=== PATIENT | male | born 1960 | race Caucasian/White ===

== ENCOUNTER → 2020-10-06 14:42 | Outpatient (BNVA) | payer MEDICAID, SELFPAY | PROVIDERS: Visit Provider Urology | DX: N28.1 Cyst of kidney, acquired (principal); N20.0 Calculus of kidney | CPT/HCPCS: 99212 ==

== ENCOUNTER → 2020-12-08 13:01 | Outpatient (BNVA) | payer MEDICAID, SELFPAY | PROVIDERS: PCP Internal Medicine; Visit Provider Urology ==

== ENCOUNTER 2021-12-02 12:53 | Outpatient (REF) | payer MEDICAID, SELFPAY ==
--- NOTE | ~2021-12-02 | US_ITS ---
EXAMINATION: US RETROPERITONEAL LIMITED (RENAL ONLY) CLINICAL INFORMATION: Calculus of kidney. COMPARISON: Ultrasound renal 08/29/2019 and 07/26/2018. TECHNIQUE: Real-time imaging of the kidneys. Bladder not imaged. FINDINGS: RIGHT KIDNEY: 11.5 x 5.0 x 6.5 cm (SAG x AP x TRV). The kidney is normal in size, contour, and echogenicity. Renal cortical thickness is normal. No renal calculi or hydronephrosis. There is an incidental specular echo interpolar region but without shadowing or twinkling artifact on color Doppler flow to suggest calculus. Simple cyst upper pole measures 4.2 x 3.5 x 3.8 cm. Prior measurements are 3.8 x 3.0 x 3.1 cm on ultrasound 2019. A smaller cyst noted previously is not demonstrated. LEFT KIDNEY: 10.9 x 6.3 x 5.3 cm (SAG x AP x TRV). The kidney is normal in size, contour, and echogenicity. Renal cortical thickness is normal. No renal calculi or hydronephrosis. There is an incidental specular echo upper pole but without shadowing or twinkling artifact on color Doppler flow to suggest calculus. Small interpolar cyst 1.0 cm is decreased from prior exam measurement 1.4 cm. US/US renal BI IMPRESSION: -No hydronephrosis or caliectasis. No definite calculi by strict ultrasound criteria. -Simple cyst upper pole right kidney 4.2 cm, prior measurement 3.8 cm.
== END 2021-12-02 12:54 | disposition home or self-care (01) ==
LOC: HO.US 12:53
PROVIDERS: Visit Provider Urology
DX: N20.0 Calculus of kidney (principal)
CPT/HCPCS: 76775

== ENCOUNTER → 2021-12-09 13:35 | Outpatient (BNVA) | payer MEDICAID, SELFPAY | PROVIDERS: PCP Psychiatry & Neurology Neurology; Visit Provider Urology | DX: N20.0 Calculus of kidney (principal); N28.1 Cyst of kidney, acquired | CPT/HCPCS: 99212 ==

== ENCOUNTER 2022-11-30 12:45 | Outpatient (REF) | payer OTHER, SELFPAY ==
--- NOTE | ~2022-11-30 | US_ITS ---
EXAMINATION: US RETROPERITONEAL LIMITED (RENAL ONLY) CLINICAL INFORMATION: Calculus of kidney. COMPARISON: Renal ultrasound 12/02/2021, renal ultrasound 08/29/2019. TECHNIQUE: Real-time imaging of the kidneys. FINDINGS: RIGHT KIDNEY: 12.5 x 6.8 x 6.1 cm (SAG x AP x TRV). The kidney is normal in size, contour, and echogenicity. Renal cortical thickness is normal. No renal calculi or hydronephrosis. A benign upper pole 3.6 cm Bosniak class I renal cyst is noted which requires no additional imaging or follow up. No solid renal masses are seen. LEFT KIDNEY: 11.0 x 6.1 x 5.7 cm (SAG x AP x TRV). The kidney is normal in size, contour, and echogenicity. Renal cortical thickness is normal. No hydronephrosis. Multiple benign Bosniak class I and Bosniak class II renal cysts are noted, the largest being a Bosniak class II cyst at the lower pole measuring 1.5 cm with an area of mural calcification posteriorly. These require no additional imaging or follow-up. No solid renal masses are seen. US/US renal BI IMPRESSION: 1. Bilateral benign Bosniak class I and Bosniak class II renal cysts which need no additional imaging or follow up. 2. No nephrolithiasis.
== END 2022-11-30 12:46 | disposition home or self-care (01) ==
LOC: HO.US 12:45
PROVIDERS: PCP Psychiatry & Neurology Neurology; Visit Provider Urology
DX: N20.0 Calculus of kidney (principal)
CPT/HCPCS: 76775

== ENCOUNTER → 2023-01-11 11:44 | Outpatient (BNVA) | payer OTHER, SELFPAY | PROVIDERS: PCP Psychiatry & Neurology Neurology; Visit Provider Urology ==

== ENCOUNTER 2023-03-16 10:33 | Outpatient (AMB) | payer OTHER, SELFPAY ==
--- NOTE | 2023-03-16 10:34 | A.OFFVIS_ITS ---
Intake Intake Visit Reasons: US Follow Up(Last appt cx) Intake Note: Patient presents today for a follow-up Meds- None Allergies to Antibiotic- No Known Allergies Blood Thinner- None Avionics Integration Engineer Required: No Allergies doxycycline Allergy (Unknown, Verified 03/16/23 10:36) Unknown tramadol Allergy (Unknown, Verified 03/16/23 10:36) Unknown KEFLEX Allergy (Unknown, Uncoded 03/16/23 10:36) Unknown Medication List - Last Reconciled 03/16/23 by Delio Sanchez MD allopurinol 300 mg PO DAILY amlodipine 10 mg PO DAILY atorvastatin 20 mg PO DAILY cyclobenzaprine 10 mg PO TID PRN fluoxetine 20 mg PO DAILY ibuprofen 600 mg PO TID PRN levothyroxine 125 mcg PO QAM levothyroxine 150 mcg PO QAM HPI HPI Comments History of Present Illness Details Kong is a pleasant male. He is a patient of Dr. Sidhu. He is seen for the following urologic disease. - nephrolithiasis - complex renal cyst Discussed imaging findings No evidence of stones Stable cysts Will follow in 12 months and after that if stable can follow with PCP Nephrolithiasis Current evaluation further follow-up for nephrolithiasis Prior history nephrolithiasis Imaging - 08/25 renal ultrasound right renal cyst 4 cm, left cyst 1 cm - 11/26 CT scan bilateral cysts, right c yst complex 4 cm - 11/27 renal ultrasound bilateral cyst stable, no stones - 11/28 renal ultrasound Bilateral benig n Bosniak class I and Bosniak class II r enal cysts which need no additional imaging or follow up Therapy - continue high fluid input with lemon w ater therapy PFSH Medical History HTN (hypertension) Review of Systems Const All systems reviewed & are unremarkable except as noted in HPI and below Reports no additional complaints Resp Reports no additional complaints GI Reports no additional complaints Reports as per HPI Musc Reports no additional complaints Physical Exam Telemedicine evaluation Appropriate responses Regular breathing rate and rhythm HEENT Head: Yes normal to inspection Ears: hearing grossly normal bilaterally Eyes General: appearance normal, both eyes and all related structures Neck Neck: Yes normal visual inspection Chest Chest palpation & inspection: normal inspection of the chest Resp Effort & Inspection: normal respiratory effort and able to speak in complete sentences Assessment & Plan Assessment & Plan (1) Complex renal cyst: Code(s): N28.1 - Cyst of kidney, acquired (2) Bilateral nephrolithiasis: Code(s): N20.0 - Calculus of kidney Plan Twelve month follow-up ultrasound Orders: Orders US renal BI 364 Days N20.0 - Calculus of kidney Patient Instructions: Imaging studies, laboratory and physical exam results were discussed and reviewed in detail. No major barriers to patient understanding were identified. An opportunity to ask questions regarding the treatment plan was provided. All questions were answered. The patient expressed understanding and agreement with the above treatment plan. The patient is aware they should contact our office by phone for worsening of their current condition or the appearance of new urologic symptoms. Compliance is encouraged with any medications and followup testing that is ordered. It is a privilege to participate in the urologic care of your patient. If you have any questions or concerns regarding treatment for the above conditions, or other urologic issues, please do not hesitate to contact me. The office telephone contact is [phone]. This note is constructed using voice recognition software. While every effort has been made to ensure accuracy foot and ankle surgeon errors may have been included. Yours sincerely, Dr Delio Sanchez MD, [facility] Providers of Expert, Compassionate Care for the Genitourinary System Telehealth Telehealth Location of provider rendering services: practice address Location of patient: address on file Patient Identification confirmed using: Name, : Yes Telehealth method: voice only Patient verbally consented to treatment: Yes Patient verbally consented to billing insurance company: Yes Patient informed of any privacy concerns related to visit: Yes Coding Level of Care Code Tele Est Pt Level 4 (78452) Diagnoses Complex renal cyst N28.1 Bilateral nephrolithiasis N20.0
== END 2023-03-16 11:52 | disposition home or self-care (01) ==
LOC: HO.HUSH 10:33
PROVIDERS: PCP Psychiatry & Neurology Neurology; Visit Provider Urology
DX: N28.1 Cyst of kidney, acquired (principal); N20.0 Calculus of kidney
CPT/HCPCS: 99442

== ENCOUNTER → 2023-03-16 10:33 | Outpatient (BNVA) | payer OTHER, SELFPAY | PROVIDERS: PCP Psychiatry & Neurology Neurology; Visit Provider Urology ==

== ENCOUNTER → 2024-03-12 10:37 | Outpatient (BNV) | payer OTHER, SELFPAY | PROVIDERS: PCP Psychiatry & Neurology Neurology; Visit Provider Radiology Diagnostic Radiology | DX: N20.0 Calculus of kidney (principal) | CPT/HCPCS: 76775 ==

== ENCOUNTER → 2024-03-14 11:05 | Outpatient (BNVA) | payer OTHER, SELFPAY | PROVIDERS: PCP Psychiatry & Neurology Neurology; Visit Provider Urology ==